=== PATIENT | female | born 1985 | race Caucasian/White ===

== ENCOUNTER → 2021-06-09 | Outpatient (CLI) | payer OTHER ==
--- NOTE | 2021-06-09 14:10 | RAD ---
EXAM: AP and lateral views of the lumbar spine DATE: 06/09/2021 11:50 AM INDICATION: Reason: PAIN IN LOWER BACK. / Spl. Instructions: / History: COMPARISON: No Prior FINDINGS: 5 nonrib-bearing lumbar-type vertebral bodies. Vertebral body heights are preserved. Mild L5-S1 disc height loss. Suspected bilateral L5 pars defects with grade 1 anterolisthesis of L5 on S1 measuring 7 mm. Straightening of the normal lumbar lordosis. No acute fracture. Cholecystectomy clips are seen. IMPRESSION: 1. Bilateral L5 pars defects are seen with grade 1 anterolisthesis of L5 on S1. 2. No acute fracture. Electronically signed by: Colton Pitts MD (06/09/2021 2:08 PM) [id number]
== END ==
LOC: RAD 11:29
PROVIDERS: ATTEND Surgery
DX: Z02.71 Encounter for disability determination (principal); M43.17 Spondylolisthesis, lumbosacral region; Z90.49 Acquired absence of other specified parts of digestive tract
CPT/HCPCS: 72100